=== PATIENT | female | born 1965 | race Caucasian/White ===

== ENCOUNTER → 2016-12-06 08:16 | Outpatient (CLI) | payer MEDICARE ==
[2013-02-05 07:14] VITALS: BMI 24.9
== END | disposition home or self-care (01) ==
LOC: D.US 08:16
DX: R10.11 Right upper quadrant pain (principal)

== ENCOUNTER → 2016-12-20 07:40 | Outpatient (CLI) | payer MEDICARE ==
[2013-02-05 07:14] VITALS: BMI 24.9
== END | disposition home or self-care (01) ==
LOC: D.NM 07:40
DX: R10.9 Unspecified abdominal pain (principal)

== ENCOUNTER → 2017-03-28 07:35 | Outpatient (CLI) | payer MEDICARE ==
[2013-02-05 07:14] VITALS: BMI 24.9
== END | disposition home or self-care (01) ==
LOC: D.RAD 07:35
DX: R11.2 Nausea with vomiting, unspecified (principal)

== ENCOUNTER → 2017-06-07 08:14 | Outpatient (CLI) | payer MEDICARE ==
[2013-02-05 07:14] VITALS: BMI 24.9
[2017-06-07 09:19] LABS: ALBUMIN 3.8 g/dL (3.4-5.0); BILIRUBIN - DIRECT 0.1 mg/dL (0.00-0.30); BILIRUBIN - INDIRECT 0.32 mg/dL (0.00-1.00); BILIRUBIN - TOTAL 0.42 mg/dL (0.2-1.3); PROTEIN - SERUM 7.2 g/dL (6.4-8.2)
== END | disposition home or self-care (01) ==
LOC: D.LAB 08:00 → D.US 08:30
PROVIDERS: Internal Medicine Gastroenterology
DX: K76.0 Fatty (change of) liver, not elsewhere classified (principal)

== ENCOUNTER 2018-03-26 08:00 | Outpatient (CLI) | payer MEDICARE ==
[2013-02-05 07:14] VITALS: BMI 24.9
[2018-05-28] MEDS ORDERED: PREDNISONE5 MG PO (09:33)
[2018-05-28] MEDS ORDERED: PROZAC20 MG PO (09:33)
[2018-05-28] MEDS ORDERED: DEXILANT60 MG PO (09:34)
[2018-05-28] MEDS ORDERED: NORVASC10 MG PO (09:34)
[2018-05-28] MEDS ORDERED: CRESTOR5 MG PO (09:34)
[2018-05-28] MEDS ORDERED: CARAFATE1 G PO (09:35)
[2018-05-28] MEDS ORDERED: VESICARE5 MG PO (09:35)
[2018-05-28] MEDS ORDERED: VITAMIN D31000 UNIT PO (09:36)
[2018-05-28] MEDS ORDERED: HYDROCODONE-APA1 TAB PO (09:36)
[2018-05-28] MEDS ORDERED: CO Q-10400 MG PO (09:36)
[2018-05-28] MEDS ORDERED: STOOL SOFTENER100 M1 PO (09:37)
[2018-05-28] MEDS ORDERED: RESTORIL15 MG PO (09:38)
[2018-05-28] MEDS ORDERED: XOPENEX HFA15 GM INH (09:50)
[2018-05-29 07:09] VITALS: BMI 24.9
== END 2018-03-26 09:00 | disposition home or self-care (01) ==
LOC: D.MAMMO 08:00
DX: Z85.3 Personal history of malignant neoplasm of breast (principal)

== ENCOUNTER 2018-05-29 06:35 | Day surgery (SDC) | payer MEDICARE ==
[2018-05-28 10:29] LABS: HEMATOCRIT 44.9 % (36.0-48.0); HEMOGLOBIN 15.2 g/dL (12-16); MCH 30.6 pg (26.0-34.0); MCHC 33.9 g/dL (31.0-37.0); MCV 90.5 fL (80.0-100.0); RBC 4.96 10x6/uL (4.00-5.40); RDW 13.4 % (11.5-14.5); WBC 11.2 10x3/uL (4.8-10.8)
[~2018-05-29] VITALS: Ht 162.6 cm; Wt 65.8 kg
--- NOTE | ~2018-05-29 | OP ---
PATIENT NAME: OCTAVIO ROBLERO MEDICAL RECORD: [id number] :61 LOCATION:D.OPS ADMISSION DATE: SURGEON: MANA KENNEY MD DATE OF OPERATION: 05/29/2018 PREOPERATIVE DIAGNOSIS: Painful postoperative scar of the right shoulder. POSTOPERATIVE DIAGNOSIS: Painful postoperative scar of the right shoulder. PROCEDURE: Scar revision with adhesion of lysis. SURGEON: Mana Kenney MD ANESTHESIA: General. INTRAOPERATIVE COMPLICATIONS: None. SUMMARY OF PATHOLOGIC FINDINGS: The patient had a solitary punctate fibrous tissue that attached from the skin to the deep deltoid fascia, status post shoulder arthroscopy. This was painful with abduction. OPERATIVE SUMMARY IN DETAIL: After obtaining the appropriate preoperative orthopedic surgery consent as well as anesthetic consultation, evaluation and clearance, the patient was brought to the operating room and placed on the operating table in supine position. After adequate general laryngeal mask was administered, the patient was placed in beach chair position. All pressure points well padded. The patient's right shoulder was prepped and draped in routine sterile fashion. Very small elliptical incision was made about the portal scar. Dissection was then carried gently down to the deep deltoid fascia and the entire fibrous strand was released. At this point, a hemostat was utilized to release the deep deltoid scar tissue that had become adherent to the rotator cuff. Having completed this, wound was irrigated and closed with 4-0 Prolene. Area was locally infiltrated with 0.25% Marcaine with epinephrine. Sterile dressings were applied. The patient was awakened and taken to the recovery room in stable condition. All final needle and sponge counts were correct. TRANSINT:[id number] Voice Confirmation ID: [id number] DOCUMENT ID: [id number] MANA KENNEY MD at 1104 CC: [id number] DICTATION DATE: 05/29/18 0855 FORKLIFT WHEEL LOADER: 05/29/18 0915 [id number] [place] [address]
[~2018-05-29 06:35] MED LIST: CARAFATE1 G PO; CO Q-10400 MG PO; CRESTOR5 MG PO; DEXILANT60 MG PO; HYDROCODONE-APA1 TAB PO; NORVASC10 MG PO; PREDNISONE5 MG PO; PROZAC20 MG PO; RESTORIL15 MG PO; STOOL SOFTENER100 M1 PO; VESICARE5 MG PO; VITAMIN D31000 UNIT PO; XOPENEX HFA15 GM INH
[2018-05-29] MEDS ORDERED: FLUTICASONE PRO16 GM NASAL (06:58)
[2018-05-29 07:09] VITALS: BP 120/71; Ht 162.6 cm; Wt 65.8 kg
[2018-05-29] MEDS ORDERED: HYDROCODONE-APA1 TAB PO (08:57)
== END 2018-05-29 10:30 | disposition home or self-care (01) ==
LOC: D.OPS 06:35 → D.PAN 07:30 → D.OPS 10:30 → D.PAN 11:05
PROVIDERS: Anesthesiology
DX: G89.18 Other acute postprocedural pain (principal); M75.01 Adhesive capsulitis of right shoulder; Z01.812 Encounter for preprocedural laboratory examination

== ENCOUNTER 2018-11-11 17:40 | Observation (INO) | payer MEDICARE, MEDICAID ==
[~2018-11-11] VITALS: Ht 162.6 cm; Wt 65.9 kg
--- NOTE | ~2018-11-11 | HEMODYNAMI ---
PATIENT:OCTAVIO ROBLERO MEDICAL RECORD: [id number] : 61 LOCATION:[facility] ADMISSION DATE: 11/11/18 Generatedon:11/12/201817:07 Patient name: OCTAVIO ROBLERO Patient #: [id number] SSN: : 1965 Date of study: 11/12/2018 Page: Of Hemodynamic Procedure Report Patient Data Patient Demographics Procedure consent was obtained First Name: OCTAVIO Gender: Female Last Name: OSBALDO : 1965 Middle Initial: ADIEL Age: 53 year(s) Patient #: [id number] Race: Unknown Additional ID: [id number] Contact details [address]: [address] [place] [address] State: [place] City: [place] Zip code: [address] Past Medical History Allergies Allergen Reaction Date Comments Reported Other allergy 11/12/2018 morphine, codeine, erythromycin base, vancomycin. Admission Admission Data Admission Date: 11/11/2018 Admission Time: 21:24 Admit Source: Emergency department Room #: D.2128 Lab Results Lab Result Date: 11/12/2018 Lab Result Time: 5:00 Biochemistry Name Units Result Min Max BUN mg/dl 21 --(----)-* 7 18 Creatinine mg/dl 0.6 --(*---)-- 0.6 1.3 CBC Name Units Result Min Max Hematocrit % 35.6 *-(----)-- 42 54 Hemoglobin g/dl 11.6 *-(----)-- 13.5 17.5 Procedure Procedure Types Cath Procedure Diagnostic Procedure LHC LHC w/Coronaries Procedure Description Procedure Date Procedure Date: 11/12/2018 Procedure Start Time: 16:58 Procedure End Time: 17:04 Procedure Staff Name Function Gautam Bhat MD Performing Physician Raimundo Cruz RT Monitor Cristiana Ward RT Scrub Gallo Mc RN Nurse Procedure Data Cath Procedure Fluoroscopy Diagnostic fluoroscopy Total fluoroscopy Time: 1.1 time: 1.1 min min Diagnostic fluoroscopy Total fluoroscopy dose: 297 dose: 297 mGy mGy Contrast Material Contrast Material Type Amount (ml) Isovue 300 38 Entry Location Entry Primary Successful Side Size Upsize Upsize Entry Closure Knapp ccessful Closure Location (Fr) 1 (Fr) 2 (Fr) Remarks Device Remarks Radial Right 6 Fr Mechanical artery Short Compression Estimated blood loss: 5 ml Diagnostic catheters Device Type Used For End Catheter Placement DIAGNOSTIC [place] 110cm 5 Procedure Fr catheter ([id number]) Procedure Complications No complications Procedure Medications Medication Administration Route Dosage 0.9% NaCl I.V. 100 ml/hr Oxygen etCO2 Nasal cannula 2 l/min Heparin Flush Bag added to field 2 bags (1000units/500ml NS) Lidocaine 2% added to field 20 Radial Cocktail added to field 1 syringe (Verapomil 2mg/Nitro 400mcg/Heparin 1500units) Versed I.V. 2 mg Fentanyl I.V. 100 mcg Versed I.V. 2 mg Fentanyl I.V. 100 mcg Radial Cocktail I.A. 1 syringe (Verapomil 2mg/Nitro 400mcg/Heparin 1500units) Versed I.V. 2 mg Hemodynamics Rest HGB: 11.6 (g/dl) Heart Rate: 79 (bpm) Pressure Samples Time Site Value (mmHg) Purpose Heart Use Rate(bpm) 17:00 LV 68/30,43 Snapshot 72 Snapshots Pre Cath Intra NCS Post Cath Vital Signs Time Heart Resp SPO2 etCO2 NIBP (mmHg) Rhythm Pain Sedation Rate (ipm) (%) (mmHg) Status Level (bpm) 16:45:27 86 19 96 30.8 128/91(104) NSR 0 (11) 10(A) , No pain 16:49:31 85 18 93 32.3 138/88(102) NSR 0 (11) 10(A) , No pain 16:53:41 90 18 94 33 137/80(109) NSR 0 (11) 10(A) , No pain 16:57:51 87 14 94 21.8 120/80(98) NSR 0 (11) 10(A) , No pain 17:02:07 92 13 92 33 95/35(49) NSR 0 (11) 10(A) , No pain Medications Time Medication Route Dose Verified Delivered Reason Notes Effectiveness by by 16:43:41 0.9% NaCl I.V. 100 Gallo Gallo Per ml/hr Alexandro Mc physician RN RN 16:43:55 Oxygen etCO2 2 l/min Gallo Gallo for low 02 Nasal Lorigan Alexandro sats cannula RN RN 16:44:05 Heparin Flush added 2 bags Gallo Gallo used for Bag to Lorcarmela Mc procedure (1000units/500ml field RN RN NS) 16:44:15 Lidocaine 2% added 20ml Gallo Gallo for local to vial Lorigan Lorigan anesthetic field RN RN 16:44:26 Radial Cocktail added 1 Gallo Gallo used for (Verapomil to syringe Lorigan Lorigan procedure 2mg/Nitro field RN RN 400mcg/Heparin 1500units) 16:52:29 Versed I.V. 2 mg Gallo Gallo for sedation Alexandro Mc RN RN 16:52:36 Fentanyl I.V. 100 mcg Gallo Gallo for sedation Alexandro Mc RN RN 16:58:18 Versed I.V. 2 mg Gallo Gallo for sedation Alexandro Mc RN RN 16:58:24 Fentanyl I.V. 100 mcg Gallo Gallo for sedation Alexandro Mc RN RN 16:59:59 Radial Cocktail I.A. 1 Gallo Gautam for (Verapomil syringe Alexandro Bhat MD vasodilation 2mg/Nitro RN 400mcg/Heparin 1500units) 17:00:06 Versed I.V. 2 mg Gallo Gallo for sedation Alexandro Mc RN event coordinator Log Time Note 16:15:41 Informed consent obtained and on chart 16:15:44 Admit Source: Emergency department 16:15:57 Diagnostic Cath status Elective 16:15:58 Raimundo Cruz RT(R) sent for patient. Start room use. 16:15:59 Time tracking: Regular hours (M-F 7:00 - 5:00) 16:16:03 Plan of Care:Hemodynamics will remain stable., Cardiac rhythm will remain stable., Comfort level will be maintained., Respiratory function will remain adequate., Patient/ family verbilizes understanding of procedure., Procedure tolerated without complication., Recovers from procedure without complications.. 16:43:41 0.9% NaCl 100 ml/hr I.V. was administered by Gallo Mc RN; Per physician; 16:43:55 Oxygen 2 l/min etCO2 Nasal cannula was administered by Gallo Mc RN; for low 02 sats; 16:44:05 Heparin Flush Bag (1000units/500ml NS) 2 bags added to field was administered by Gallo Mc RN; used for procedure; 16:44:15 Lidocaine 2% 20ml vial added to field was administered by Gallo Mc RN; for local anesthetic; 16:44:19 Patient received from Med II to CCL 2 Alert and oriented. Tansferred to table in Supine position. 16:44:20 Warm blankets applied, and lenard hugger turned on for patient comfort. 16:44:20 Correct patient and procedure confirmed by team. 16:44:21 ECG and BP/O2 sat monitors applied to patient. 16:44:22 Baseline sample Acquired. 16:44:22 Vital chart was started 16:44:25 Rhythm: sinus rhythm 16:44:26 Radial Cocktail (Verapomil 2mg/Nitro 400mcg/Heparin 1500units) 1 syringe added to field was administered by Gallo Mc RN; used for procedure; 16:44:26 Full Disclosure recording started 16:44:44 H&P Date Dictated: 11/11/2018 Within 30 days and on chart.. 16:44:49 Family unavailable. 16:45:27 Lab Result : BUN 21 mg/dl 16:45:27 Lab Result : Hemoglobin 11.6 g/dl 16:45:27 Lab Result : Creatinine 0.6 mg/dl 16:45:27 Lab Result : Hematocrit 35.6 % 16:45:29 Lab results completed and on chart. 16:45:33 Pre-procedure instructions explained to patient. 16:45:33 Pre-op teaching completed and patient verbalized understanding. 16:45:38 Patient NPO since Midnight. 16:45:59 Patient allergic to Other allergymorphine, codeine, erythromycin base, vancomycin. 16:46:01 Is the patient allergic to Iodine/contrast media? No. 16:46:02 Is patient on blood thinner?Yes 16:46:05 ACC The patient was administered the following blood thiners within the last 24 hours: ACCPlavix 16:46:06 Patient diabetic? No. 16:46:10 Previous problem with sedation/anesthesia? Yes nausea 16:46:19 Snore? Yes 16:46:19 Sleep apnea? Yes 16:46:20 Deviated septum? No 16:46:21 Opens mouth fully? Yes 16:46:22 Sticks out tongue? Yes 16:46:24 Airway obstruction? Yes asthma 16:46:26 Dentures? No ? 16:46:29 Modified Alden's test Ulnar < 7 seconds 16:46:30 Patient pain scale 0/10 ?. 16:46:39 IV patent on arrival in left wrist with 0.9% NaCl at [facility]. 16:46:42 Right Radial & Right Groin area was prepped with chlora-prep and draped in sterile fashion 16:46:42 Alarms reviewed by R. N. 16:46:43 Sharps counted by scrub and verified by R.N. 16:46:45 Use device set Radial Dx or PCI 16:46:46 ACIST Syringe (47269) opened to sterile field. 16:46:46 Medline Cath Pack ([id number]) opened to sterile field. 16:46:46 Bag Decanter (2002S) opened to sterile field. 16:46:47 ACIST Hand Control (22473) opened to sterile field. 16:46:48 ACIST Manifold (40217) opened to sterile field. 16:46:48 Tegaderm 4 x 4 (1626W) opened to sterile field. 16:46:48 MBrace Wrist Support ([id number]) opened to sterile field. 16:46:49 SHEATH 6FR Slender (82-1060) opened to sterile field. 16:46:50 DIAGNOSTIC WIRE .035 260cm J wire (201493) opened to sterile field. 16:50:58 Physician arrived 16:50:58 --------ALL STOP TIME OUT------ 16:50:59 Final Timeout: patient, procedure, and site verified with staff and physician. All members of the team are in agreement. 16:51:00 Right Radial & Right Groin site verified by team. 16:51:03 Fire Safety Assessment: A--An alcohol-based skin anteseptic being used preoperatively., C--Open oxygen or nitrous oxide is being used., D--An ESU, laser, or fiber-optic light is being used. 16:51:05 Physical assessment completed. ASA score P 2 - A patient with mild systemic disease as per Gautam Bhat MD. 16:51:07 Sedation plan: IV Moderate Sedation Medication:Versed, Fentanyl 16:52:29 Versed 2 mg I.V. was administered by Gallo Mc RN; for sedation; 16:52:36 Fentanyl 100 mcg I.V. was administered by Gallo Mc RN; for sedation; 16:58:08 Zero performed for pressure channel P1 16:58:18 Versed 2 mg I.V. was administered by Gallo Mc RN; for sedation; 16:58:24 Fentanyl 100 mcg I.V. was administered by Gallo Mc RN; for sedation; 16:58:51 Procedure started. 16:58:55 Local anesthetic to right radial artery with Lidocaine 2% by Gautam Bhat MD.INITIAL ACCESS ONLY 16:59:01 A 6 Fr Short sheath was inserted into the Right Radial artery 16:59:11 A DIAGNOSTIC [place] 110cm 5 Fr catheter (989163) was advanced over the wire and used for Procedure. 16:59:59 Radial Cocktail (Verapomil 2mg/Nitro 400mcg/Heparin 1500units) 1 syringe I.A. was administered by Gautam Bhat MD; for vasodilation; 17:00:06 Versed 2 mg I.V. was administered by Gallo Mc RN; for sedation; 17:00:57 LV gram done using BUCIO 17:01:00 Injector settings: Ml/sec: 5, Volume: 15, 17:01:01 LV hemodynamics recorded. 17:01:05 EF : 60 % 17:01:12 LCA angiography performed. 17:02:07 TR BAND Standard ([id number]) opened to sterile field. 17:02:12 RCA angiography performed. 17:02:21 Sheath removed intact; hemostasis achieved with Mechanical Compression to the Right Radial artery. 17:02:22 Procedure ended.(Physican Out) 17:02:37 Fluoroscopy time 01.10 minutes. 17:02:41 Fluoroscopy dose: 297 mGy 17:02:41 Flurop Dose total: 297 17:02:49 Contrast amount:Isovue 300 38ml. 17:02:50 Sharps counted by scrub and verified by R.N. 17:02:53 TR band inflated with 10cc of air. 17:02:54 Insertion/operative site no bleeding no hematoma. 17:02:58 Post Procedure Pulses reassessed and unchanged 17:02:59 Post-procedure physical assessment completed. ASA score P 2 - A patient with mild systemic disease as per Gautam Bhat MD. 17:03:01 Post procedure rhythm: unchanged. 17:03:03 Estimated blood loss: 5 ml 17:03:04 Post procedure instruction explained to patient.Patient verbalizes understanding. 17:03:05 Patient needs reinforcement of post procedure teaching. 17:04:42 Procedure and supply charges have been captured, reviewed, submitted and are correct. 17:04:44 Procedure Complication : No complications 17:04:46 Vital chart was stopped 17:04:50 See physician's report for complete and final results. 17:04:52 Report given to Pre/Post Procedure Room. 17:04:55 Patient transfered to Pre/Post Procedure Room with Stretcher. 17:04:56 Procedure ended. 17:04:56 Full Disclosure recording stopped 17:05:00 End room use (Document Last) Device Usage Item Name Manufacture Quantity Catalog Hospital Part Current Minimal Lot# / Number Charge Number Stock Stock Serial# Code ACIST Acist 1 24817 360378 741705 683345 20 Syringe Medical (65029) Systems Inc Medline Medline 1 [id number] 001379 46802 747974 5 Cath Pack ([id number]) Bag Microtek 1 2001S 365300 44338 048833 5 Decanter Medical Inc. (2001S) ACIST Hand Acist 1 07247 487407 394414 229951 5 Control Medical (45138) Systems Inc ACIST Acist 1 24644 677725 244815 859001 5 Manifold Medical (58719) Systems Inc Tegaderm 4 3M 1 1626W 732405 230246 419394 5 x 4 (1626W) MBrace Advanced 1 140-0250-00 281800 41414 977088 5 Wrist Vascular Support Dynamics ([id number]) SHEATH 6FR Terumo 1 [id number] 708894 808981 722522 5 Slender (80-1060) DIAGNOSTIC [place] 1 163900 240997 592519 473911 30 WIRE .035 260cm J wire (586234) DIAGNOSTIC Terumo 1 40-3480 152989 881355 293003 5 [place] 110cm 5 Fr catheter (919959) TR BAND Terumo 1 [id number] 969275 542437 435622 40 Standard ([id number]) Signature Audit [place] Stage Time Signature Unsigned Intra-Procedure 11/12/2018 Raimundo Cruz 5:07:24 PM RT(R) Signatures Monitor : Raimundo Cruz RT Signature : Date : Time : [id number] [place] [address]
[~2018-11-11 17:40] MED LIST changes: +FLUTICASONE PRO16 GM NASAL
[2018-11-11 18:04] VITALS: BP 145/100
--- NOTE | 2018-11-11 18:28 | NUR ---
PT REPORTS CHEST PRESSURE 5/10 AFTER 2ND NITROGLYCERIN TABLET.
[2018-11-11 18:44] LABS: BASOPHILS 0.4 % (0-2); HEMATOCRIT 42.4 % (36.0-48.0); HEMOGLOBIN 14.3 g/dL (12-16); IMMATURE GRANULOCYTES 0.3 % (0-5); LYMPHOCYTES 35.9 % (15-50); MCH 29.9 pg (26.0-34.0); MCHC 33.7 g/dL (31.0-37.0); MCV 88.7 fL (80.0-100.0); MEAN PLATELET VOLUME 10.1 fL (7.4-10.4); MONOCYTES 6.8 % (2-11); NEUTROPHILS 53.6 % (40-80); PLATELET COUNT 364 10x3/uL (130-400); RBC 4.78 10x6/uL (4.00-5.40); RDW 13.6 % (11.5-14.5); WBC 13.8 10x3/uL (4.8-10.8)
[2018-11-11 18:48] LABS: INR 1.02 (0.85-1.17); PROTIME 12.9 SECONDS (11.6-15.0)
[2018-11-11 18:59] LABS: ALBUMIN 4.2 g/dL (3.4-5.0); ALKALINE PHOSPHATASE 94 U/L (46-116); ALT (SGPT) 58 U/L (10-68); BILIRUBIN - TOTAL 0.38 mg/dL (0.2-1.3); CALC OSMOLALITY 283 mosm/kg (275-300); CALCIUM 9.4 mg/dL (8.5-10.1); CARBON DIOXIDE 26.2 mmol/L (21.0-32.0); CHLORIDE - SERUM 103 mmol/L (98-107); CREATININE - SERUM 0.6 mg/dL (0.6-1.3); GLUCOSE 98 mg/dL (74-106); POTASSIUM - SERUM 3.3 mmol/L (3.5-5.1); PROTEIN - SERUM 7.7 g/dL (6.4-8.2); SODIUM 141 mmol/L (136-145); UREA NITROGEN 21 mg/dL (7-18); eGFR NON AFRICAN AMERICAN > 90 mL/min (90-120)
[2018-11-11 19:09] LABS: CKMB 1.1 U/L (0.0-3.6); CREATINE KINASE 69 UL (21-215); MAGNESIUM - SERUM 1.9 mg/dL (1.8-2.4); TROPONIN-I < 0.017 ng/mL (0.000-0.060)
[2018-11-11 20:59] VITALS: BP 120/77
--- NOTE | 2018-11-11 22:44 | NUR ---
PT TO FLOOR FROM ER VIA WHEELCHAIR. A/O X4. UP AB JERRY. VITALS STABLE. NITRO PATCH TO L CHEST. L AC IV SL. ROOM AIR. NORMAL SINUS ON TELE. LUNGS CLEAR. C/O DISCOMFORT TO L SHOULDER, STATES SHE WOULD LIKE SOME DILAUDID AFTER SHE EATS HER FOOD. PT HASNT ATE ALL DAY. LAURA AMIN PROVIDED. PT TO BE NPO AFTER MIDNIGHT FOR CATH TOMORROW. NO FURTHER CONCERNS AT THIS TIME. BED LOWERED AND LOCKED. CL IN REACH. CPOC.
[2018-11-12 02:53] VITALS: BP 120/80; BMI 24.9
--- NOTE | 2018-11-12 03:38 | NUR ---
RN NOTE: PATIENT RESTING COMFORTABLY IN BED. RESPIRATIONS ARE EVEN AND UNLABORED. NO S/S DISTRESS. CALL LIGHT WITHIN REACH. WILL CPOC.
[2018-11-12 04:00] VITALS: BP 93/57
--- NOTE | 2018-11-12 04:12 | NUR ---
PT LAYING IN BED RESTING. STATES BEING HOT, AIR TURNED ON. PT DENIES FURTHER NEEDS. BREATHING EVEN AND UNLABORED. BED LOWERED AND LOCKED. CL IN REACH. SR UP X 2. WILL CPOC.
[2018-11-12 06:25] LABS: CKMB 1.1 U/L (0.0-3.6); CREATINE KINASE 55 UL (21-215)
[2018-11-12 06:36] LABS: TROPONIN-I < 0.017 ng/mL (0.000-0.060)
--- NOTE | 2018-11-12 08:05 | NUR ---
INITIAL ROUNDING. PATIENT AWAKE AND WAITING TO GO TO MANAGER OF RADIOLOGY. SHE IS ALERT, AND USING LEMON MOUTH SWABS AT THIS TIME. PATIENT DENIES PAIN
[2018-11-12 08:15] VITALS: BP 100/70
[2018-11-12 08:37] VITALS: Ht 162.6 cm; Wt 65.9 kg
[2018-11-12 09:07] LABS: BASOPHILS 0.4 % (0-2); EOSINOPHILS 4.4 % (0-7); HEMATOCRIT 35.6 % (36.0-48.0); HEMOGLOBIN 11.6 g/dL (12-16); IMMATURE GRANULOCYTES 0.2 % (0-5); LYMPHOCYTES 42.6 % (15-50); MCH 29.5 pg (26.0-34.0); MCHC 32.6 g/dL (31.0-37.0); MCV 90.6 fL (80.0-100.0); MEAN PLATELET VOLUME 10.1 fL (7.4-10.4); MONOCYTES 8.8 % (2-11); NEUTROPHILS 43.6 % (40-80); PLATELET COUNT 330 10x3/uL (130-400); RBC 3.93 10x6/uL (4.00-5.40); RDW 13.9 % (11.5-14.5)
[2018-11-12 09:09] LABS: WBC 9.6 10x3/uL (4.8-10.8)
[2018-11-12 09:19] LABS: CALC OSMOLALITY 287 mosm/kg (275-300); CALCIUM 8.6 mg/dL (8.5-10.1); CARBON DIOXIDE 24.7 mmol/L (21.0-32.0); CHLORIDE - SERUM 105 mmol/L (98-107); CREATININE - SERUM 0.7 mg/dL (0.6-1.3); GLUCOSE 139 mg/dL (74-106); POTASSIUM - SERUM 3.1 mmol/L (3.5-5.1); SODIUM 142 mmol/L (136-145); UREA NITROGEN 21 mg/dL (7-18); eGFR NON AFRICAN AMERICAN > 90 mL/min (90-120)
[2018-11-12 11:52] VITALS: BP 122/80
--- NOTE | 2018-11-12 12:54 | MORECARE ---
CASE MANAGEMENT DISCHARGE SUMMARY PATIENT: OCTAVIO ROBLERO UNIT: [id number] ADM DATE: 11/11/18 AGE: 53 : 61 SEX: F ROOM/BED: D.2128 AUTHOR: HUANG DAWN PHYSICIAN: REFERRING PHYSICIAN: GABRIELA HOLMAN MD DATE OF SERVICE: 11/12/18 Discharge Plan Patient Name: OCTAVIO ROBLERO Facility: [facility]:[place] : 1965 Planned Disposition: Anticipated Discharge Date: Discharge Date: Expected LOS: Initial Reviewer: [email or web address] Initial Review Date: 11/11/2018 Generated: 11/12/18 1:54 pm Coverage Notice Reviewer: [email or web address] - [place] Notice Issued Date-Time: 11/12/2018 12:35 Notice Type: Medicare Outpatient Observation Notice Notice Delivered To: Patient Relationship to Patient: Self Clinical Athletic Instructor Name: Delivery Method: HAND - Hand Delivered Sarah Days: Prior Verbal Notification: Recipient Understood Notice: Yes Recipient Signature: Yes Med Rec Note Co-signed by Attending: Coverage Notice Comment: JORDON DISCUSSED WITH PATIENT AND BOYFRIEND, JOHN BROWNLEE, AFTER VERBAL CONSENT OBTAINED. Patient Name: OCTAVIO ROBLERO Page [phone] at 1254 All edits/amendments must be made on the electronic document DICTATION DATE: 11/12/18 1253 STEWARD/STEWARDESS THIRD: FORREST 11/12/18 1253 RPT#: [id number] ID DATE: STATUS: ADM IN [facility] [address] [place] [address] END OF REPORT
[2018-11-12 15:26] VITALS: BP 125/82
--- NOTE | 2018-11-12 17:30 | NUR ---
PATIENT AWAKE, EATING ICE CHIPS. RIGHT TR BAND IN PLACE, NO S/S OF BLEEDING OR HEMATOMA. NO C/O PAIN, NUMBNESS, OR TINGLING. NO N/V.
--- NOTE | 2018-11-12 18:00 | NUR ---
RIGHT WRIST TR BAND CDI, NO BLEEDING OR HEMATOMA NOTED. 2L NC WITH NO RESP DISTRESS. NO C/O AT THIS TIME. VSS. WILL CONTINUE TO MONITOR.
--- NOTE | 2018-11-12 18:16 | NUR ---
SIPPING IN DRINK AND EATING DINNER WITH NO C/O NAUSEA. RIGHT WRIST TR BAND CDI, NO BLEEDING OR HEMATOMA NOTED. VSS. CALL LIGHT WITHIN REACH.
--- NOTE | 2018-11-12 18:30 | NUR ---
3CC OF AIR REMOVED FROM TR BAND WITH NO BLEEDING NOTED. VSS. WILL CONTINUE TO MONITOR.
--- NOTE | 2018-11-12 18:42 | NUR ---
3CC OF AIR REMOVED FROM TR BAND WITH NO BLEEDING NOTED. LEFT PIV D/C'D WITH CATHETER INTACT, BAND AID TO SITE. UP TO BEDSIDE TO GET DRESSED.
--- NOTE | 2018-11-12 18:55 | NUR ---
REMAINING AIR REMOVED FROM TR BAND WITH NO BLEEDING NOTED. DRESSING PLACED TO SITE. DISCHARGE INSTRUCTIONS ALONG WITH PRESCRIPTION FOR [place] GIVEN, VERBALIZED UNDERSTANDING.
--- NOTE | 2018-11-12 19:08 | NUR ---
TAKEN OUT VIA WHEELCHAIR BY CATH NIP WRAPPER. LEFT FACILITY WITH FAMILY AND ALL PERSONAL BELONGINGS.
--- NOTE | 2018-11-17 11:45 | OP ---
PATIENT NAME: OCTAVIO ROBLERO MEDICAL RECORD: [id number] :61 LOCATION:[facility]11 ADMISSION DATE:11/11/18 SURGEON: GABRIELA HOLMAN MD DATE OF OPERATION: 11/12/2018 PROCEDURES: 1. Left heart catheterization. 2. Selective coronary angiography. 3. Left ventriculogram. INDICATION: Chest pain. PROCEDURE IN DETAIL: After informed consent was obtained and after a detailed description of the risks, benefits as well as alternative therapies, the patient elected to proceed with angiogram and heart catheterization. The right radial area was prepped and draped in normal sterile fashion. Right radial artery was cannulated via modified Seldinger technique with placement of 6-Romanian sheath. All catheters exchanged through this sheath. FINDINGS: The left ventriculogram was performed in standard 30-degree BUCIO view, reveals good cardiac wall motion throughout all segments. Overall ejection fraction estimated at 60%. SELECTIVE CORONARY ANGIOGRAPHY: Left main, left anterior descending, left circumflex, right coronary artery are all smooth-walled vessels with no angiographic evidence of coronary artery disease. OVERALL IMPRESSION: 1. No angiographic evidence of coronary artery disease. 2. Normal left heart pressures. 3. Normal left ventricular systolic function. Chest pain is noncardiac in etiology. No further cardiac workup needs to be ascertained. TRANSINT:[id number] Voice Confirmation ID: [id number] DOCUMENT ID: [id number] GABRIELA HOLMAN MD at 1145 CC: [id number] DICTATION DATE: 11/12/18 1709 CHIMNEY CONSTRUCTION SUPERVISOR: 11/12/18 1800 DIS IN 11/12/18 [address] [place] [address]
--- NOTE | 2018-11-17 11:45 | DS ---
PATIENT:OCTAVIO ROBLERO :[birth year] MEDICAL RECORD: [id number] DISCHARGE SUMMARY ADMISSION DATE: 11/11/18 DISCHARGE DATE: 11/12/18 DIAGNOSES: 1. Chest pain. 2. Normal cardiac catheterization. 3. Lupus. 4. History of breast cancer. 5. Hypertension. 6. Hyperlipidemia. HOSPITAL COURSE: Mrs. Roblero presents with chest pain, most likely musculoskeletal from her previous breast cancer and mastectomy and/or her lupus. Her cardiac catheterization was normal. No other cardiac workup or treatment is necessary. TRANSINT:[id number] Voice Confirmation ID: [id number] DOCUMENT ID: [id number] GABRIELA HOLMAN MD at 1145 CC: [id number] DICTATION DATE: 11/12/181706 TOP STOP ATTACHER: 11/12/181958 DIS IN 11/12/18 [id number] [place] [address]
== END 2018-11-12 19:08 | disposition home or self-care (01) ==
LOC: D.ER 17:40 → OBSVTIME 21:24 → D.M2 21:24 → D.CLR 11-12 17:07
PROVIDERS: Family Medicine; ADMIT Internal Medicine Interventional Cardiology
DX: R07.89 Other chest pain (principal); M32.9 Systemic lupus erythematosus, unspecified; E78.5 Hyperlipidemia, unspecified; I10 Essential (primary) hypertension; Z85.3 Personal history of malignant neoplasm of breast

== ENCOUNTER 2020-01-15 11:15 | Emergency (ER) | payer MEDICARE, MEDICAID ==
[~2020-01-15] VITALS: Ht 162.6 cm; Wt 65.9 kg
[2020-01-15 11:29] VITALS: Ht 162.6 cm; Wt 65.9 kg
[2020-01-15 12:06] LABS: CALC OSMOLALITY 270 mosm/kg (275-300); CALCIUM 9.3 mg/dL (8.5-10.1); CHLORIDE - SERUM 96 mmol/L (98-107); CREATININE - SERUM 0.7 mg/dL (0.6-1.3); GLUCOSE 128 mg/dL (74-106); POTASSIUM - SERUM 3.6 mmol/L (3.5-5.1); SODIUM 132 mmol/L (136-145); UREA NITROGEN 24 mg/dL (7-18); eGFR NON AFRICAN AMERICAN > 90 mL/min (90-120)
[2020-01-15 12:14] LABS: ALBUMIN 3.3 g/dL (3.4-5.0); ALKALINE PHOSPHATASE 138 U/L (30-120); ALT (SGPT) 53 U/L (10-68); BILIRUBIN - TOTAL 0.51 mg/dL (0.2-1.3)
[2020-01-15 12:23] LABS: BASOPHILS 0.1 % (0-2); EOSINOPHILS 0.1 % (0-7); HEMATOCRIT 41.8 % (36.0-48.0); HEMOGLOBIN 13.5 g/dL (12-16); IMMATURE GRANULOCYTES 0.5 % (0-5); LYMPHOCYTES 6.2 % (15-50); MCH 29.2 pg (26.0-34.0); MCHC 32.3 g/dL (31.0-37.0); MCV 90.3 fL (80.0-100.0); MEAN PLATELET VOLUME 9.6 fL (7.4-10.4); MONOCYTES 6.4 % (2-11); NEUTROPHILS 86.7 % (40-80); PLATELET COUNT 418 10x3/uL (130-400); RBC 4.63 10x6/uL (4.00-5.40); RDW 13.7 % (11.5-14.5); WBC 20.3 10x3/uL (4.8-10.8)
[2020-01-15 12:37] LABS: BACTERIA MODERATE /hpf (NEGATIVE); BILIRUBIN NEGATIVE (NEGATIVE); GLUCOSE NEGATIVE (NEGATIVE); KETONE NEGATIVE (NEGATIVE); NITRITE NEGATIVE (NEGATIVE); SPECIFIC GRAVITY 1.015 (1.005-1.020); WHITE CELLS - URINE 0-5 /hpf (NEGATIVE)
[2020-01-15 16:49] VITALS: BP 123/81
== END 2020-01-15 17:22 | disposition home or self-care (01) ==
LOC: D.ER 11:15
PROVIDERS: Emergency Medicine
DX: R51 Headache (principal); I10 Essential (primary) hypertension; J45.909 Unspecified asthma, uncomplicated; M32.9 Systemic lupus erythematosus, unspecified; R11.10 Vomiting, unspecified